=== PATIENT | female | born 1985 | race Caucasian/White ===

== ENCOUNTER → 2016-06-26 | Day surgery (SDC) | payer OTHER ==
[~2016-06-26] MED LIST: AMITRIPTYLINE H50 MG PO; BACTRIM DS TABL1 TA2 PO; DICLOFENAC PO; FLEXERIL10 MG PO; GABAPENTIN400 MG PO; KEFLEX500 M1 PO; LACTULOSE10 G/15 M1 PO; MELOXICAM15 MG PO; METHADOSE PO; NO MEDICATIONS; OMEPRAZOLE40 M1 PO; PHENERGAN SUPP25 MG PR; VITAMIN D50000 UNIT PO; [UNRECOGNIZED DRUG - OTHER] PO
--- NOTE | ~2016-06-26 | OR ---
Unit #: [id number] #: [id number] Patient: CAROLYN HOUGH [id number] [address] [address] [id number] O MR#: [id number] NAME: CAROLYN HOUGH ROOM: Date of Procedure: 06/26/2016 Admission Date: 06/26/2016 Surgeon: Tim Tucker M.D. : 1985 Attending Physician: Tim Tucker M.D. Referring Physician: Tim Tucker M.D. Primary Care Physician: Lindsey Primary Care Physician PROCEDURE OPERATIVE NOTE PROCEDURES PERFORMED 1. Esophagogastroduodenoscopy. 2. Colonoscopy. PREOPERATIVE DIAGNOSES 1. Chronic nausea. 2. Chronic constipation. POSTOPERATIVE DIAGNOSES 1. Distal esophageal ulcer. 2. Gastroparesis. 3. Internal hemorrhoids. ANESTHESIA Monitored anesthesia care. DESCRIPTION OF PROCEDURE COLONOSCOPY: After adequate explanation of the risks, benefits and alternatives of the procedure, an informed consent was obtained from the patient. The patient was brought to the Endoscopy Suite. Intravenous sedation was administered. The patient was placed in the left lateral position. The colonoscope was introduced into the rectum and advanced to the cecum without difficulty. Once in the cecum, the anatomic landmarks were identified very well. The ileocecal valve was examined. The appendiceal orifice was examined. The scope was slowly withdrawn with the findings as noted in the next section. Adequate mucosal visualization of the colonic mucosa was done upon slow withdrawal. The scope was slowly withdrawn into the rectum and a retroflexed view was also obtained. The scope was withdrawn. The patient tolerated the procedure very well. FINDINGS CECUM: Normal. ILEOCECAL VALVE: Normal. APPENDICEAL ORIFICE: Normal. ASCENDING COLON: Retained stool. TRANSVERSE COLON: Retained stool. DESCENDING COLON: Retained stool. Unit #: [id number] #: [id number] Patient: CAROLYN HOUGH SIGMOID COLON: Poor colon prep, otherwise unremarkable. RECTUM: Internal hemorrhoids. Scope withdrawal time was over 6 minutes. DESCRIPTION OF PROCEDURE ESOPHAGOGASTRODUODENOSCOPY: After adequate explanation of the risks, benefits and alternatives of the procedure, an informed consent by the patient was obtained. The patient was brought to the Endoscopy Suite. Intravenous sedation was administered. With the patient lying in the left lateral position and after placing the mouthpiece in the mouth, after adequate visualization of the vocal cords, a laryngoscopy was also done and the scope was passed via cricopharyngeus into the esophagus. After this, the esophageal mucosa was examined with an examination of the proximal, middle, and distal esophagus. The scope was then advanced into the stomach where a retroflexed view was obtained to examine the fundus and the angularis incisura. The lesser and greater curvature were examined. After adequate air insufflation, the antrum was then examined. The scope was then advanced to the pylorus and the scope was passed via pylorus up to the descending duodenum. The duodenal bulge and descending duodenum were examined very well. The scope was slowly withdrawn. The patient tolerated the procedure very well. FINDINGS LARYNGOSCOPY: ESOPHAGUS: Proximal esophagus normal. Middle esophagus normal. Distal esophagus evidence of erosive esophagitis with ulceration. Biopsy obtained at 37 cm and sent to pathology. STOMACH: Fundus - evidence of gastroparesis. LESSER CURVATURE: Normal. GREATER CURVATURE: Normal. ANGULARIS INCISURA: Normal. ANTRUM: Normal. DUODENUM: Bulb normal. Descending duodenum normal. ASSESSMENT AND PLAN 1. The patient is a 31-year-old female who presented with chronic nausea. Esophagogastroduodenoscopy at this time shows evidence of erosive esophagitis with ulceration. The patient was started on proton pump inhibitors. Biopsy will be reviewed to make further recommendations. In addition, lifestyle and diet modifications. 2. Chronic constipation: The patient might have underlying colonic (1) which might explain her symptomatology. She will be placed on Linzess and MiraLax and (2) . Otherwise, colonoscopy appears to be unremarkable without any obstructive lesions or polyps. Dictated by... Unit #: [id number] #: [id number] Patient: CAROLYN HOUGH Bryce Bautista/migue TD: 06/26/2016 16:39 JOB #: [id number] CC: Moisés Fountain II, M.D. PROCEDURE OPERATIVE NOTE Page 1 of 1 X Tim Tucker MD PROCEDURE OPERATIVE NOTE
== END | disposition home or self-care (01) ==
LOC: COPS 11:49
DX: K22.10 Ulcer of esophagus without bleeding (principal); K21.0 Gastro-esophageal reflux disease with esophagitis; K31.84 Gastroparesis; K64.8 Other hemorrhoids; K59.00 Constipation, unspecified; Z87.891 Personal history of nicotine dependence
CPT/HCPCS: 88305; J2250